=== PATIENT | male | born 1970 | race Two or more races ===

== ENCOUNTER 2019-02-21 05:44 | Emergency (ER) | payer OTHER ==
[~2019-02-21] VITALS: Ht 180.3 cm; Wt 86.2 kg
[2019-02-21 06:19] VITALS: BP 128/87
--- NOTE | 2019-02-21 06:19 | NUR ---
Patient discharged to home in stable conditon. Written and verbal after care instructions given. Patient verbalizes understanding of instructions. Ambulated from ER with stable gait. All belongings with patient. VSS
== END 2019-02-21 06:20 | disposition home or self-care (01) ==
LOC: ER 06:00
DX: S61.511A Laceration without foreign body of right wrist, initial encounter (principal); S61.551A Open bite of right wrist, initial encounter; F32.9 Major depressive disorder, single episode, unspecified; W54.0XXA Bitten by dog, initial encounter; Y93.89 Activity, other specified; Y92.89 Other specified places as the place of occurrence of the external cause; Y99.8 Other external cause status
CPT/HCPCS: A4663

== ENCOUNTER 2019-02-23 06:47 | Emergency (ER) | payer OTHER ==
[~2019-02-23] VITALS: Ht 180.3 cm; Wt 86.2 kg
--- NOTE | 2019-02-23 06:57 | NUR ---
AT BEDSIDE FOR HX AND PHYSICAL PT HERE FOR A WOUND CHECK TO R WRIST DORSAL PUNCTURE FROM DOG BITE WAS SEEN 2DAYS AGO AND GIVEN AUGMENTIN NAD DENIES FEVERS DENIES CHILLS
--- NOTE | 2019-02-23 07:02 | NUR ---
Patient discharged to home in stable conditon. Written and verbal after care instructions given. Patient verbalizes understanding of instructions. AMBULATORY W STABLE GAIT ALL BELONGINGS W PT
[2019-02-23 07:03] VITALS: BP 118/84
== END 2019-02-23 07:03 | disposition home or self-care (01) ==
LOC: ER 06:50
DX: S61.551D Open bite of right wrist, subsequent encounter (principal); F12.10 Cannabis abuse, uncomplicated; W54.0XXD Bitten by dog, subsequent encounter
CPT/HCPCS: A4663